=== PATIENT | male | born 1940 | race Caucasian/White ===

== ENCOUNTER 2020-05-16 12:22 | Emergency (ER) | payer OTHER ==
[~2020-05-16] VITALS: Ht 160 cm; Wt 67.1 kg
[2020-05-16] MEDS ORDERED: LIPITOR20 MG (13:17)
[2020-05-16] MEDS ORDERED: JANUVIA50 MG (13:17)
[2020-05-16] MEDS ORDERED: GLUMETZA1000 MG (13:17)
[2020-05-16] MEDS ORDERED: ADVAIR 100-501 EACH (13:19)
== END 2020-05-16 20:38 | disposition home or self-care (01) ==
LOC: ER 12:22
DX: U07.1 COVID-19 (principal); J12.89 Other viral pneumonia